=== PATIENT | female | born 1985 | race Caucasian/White ===

== ENCOUNTER 2019-08-14 10:58 | Emergency (ER) | payer BC ==
--- NOTE | 2019-08-14 12:50 | EDM.PDOC ---
Scribed by Angela Palma 08/14/19 1250 for Colin Lopez MD ED HPI GENERAL MEDICAL PROBLEM - General Chief Complaint: ENT Problem Stated Complaint: SWOLLEN THROAT/UPPER BODY ACHES Time Seen by Provider: 08/14/19 11:11 Source of Information: Reports: Patient, RN, RN Notes Reviewed History Limitations: Reports: No Limitations - History of Present Illness INITIAL COMMENTS - FREE TEXT/NARRATIVE: Patient is a 34-year-old with swollen glands under jaw and stiff back of neck this week. She started having increased heart rate, chest tight and shoulder muscles hurt. A shower helped to ease discomfort. Onset: Gradual Duration: Constant Location: Reports: Generalized Quality: Reports: Ache Severity: Moderate Improves with: Reports: None Worsens with: Reports: None Associated Symptoms: Reports: No Other Symptoms Chest Pain Score (Numeric/FACES): 3 - Related Data Allergies Allergy/AdvReac Type Severity Reaction Status Date / Time No Known Allergies Allergy Verified 08/14/19 11:03 Home Meds: Home Meds Bifidobacterium Infantis [Align] 10.5 mg PO DAILY 08/14/19 [History] Past Medical History - Past Health History Medical/Surgical History: Denies Medical/Surgical History HEENT History: Reports: None Cardiovascular History: Reports: None Respiratory History: Reports: None Gastrointestinal History: Reports: Celiac Disease Genitourinary History: Reports: None 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 Musculoskeletal History: Reports: None Neurological History: Reports: None Psychiatric History: Reports: None Endocrine/Metabolic History: Reports: None Hematologic History: Reports: None Immunologic History: Reports: None Oncologic (Cancer) History: Reports: None Dermatologic History: Reports: None - Infectious Disease History Infectious Disease History: Reports: None - Past Surgical History Head Surgeries/Procedures: Reports: None GI Surgical History: Reports: Cholecystectomy Social & Family History - Family History Family Medical History: Noncontributory - Tobacco Use Smoking Status *Q: Never Smoker Second Hand Smoke Exposure: No - Caffeine Use Caffeine Use: Reports: Coffee - Recreational Drug Use Recreational Drug Use: No ED ROS ENT - Review of Systems Review Of Systems: Comprehensive ROS is negative, except as noted in HPI. ED EXAM, ENT - Physical Exam Exam: See Below Exam Limited By: No Limitations General Appearance: Alert, WD/WN, No Apparent Distress Eye Exam: Bilateral Eye: Normal Inspection Ears: Normal External Exam, Normal Canal, Hearing Grossly Normal, Normal TMs Nose: Normal Inspection, Normal Mucousa, No Blood Mouth/Throat: Normal Gums, Normal Lips, Normal Oropharynx, Normal Teeth, Pharyngeal Erythema. No: Tonsillar Exudates Head: Atraumatic, Normocephalic Neck: Supple, Full Range of Motion, Lymphadenopathy (L), Lymphadenopathy (R) Respiratory/Chest: No Respiratory Distress, Lungs Clear, Normal Breath Sounds, No Accessory Muscle Use, Chest Non-Tender. No: Crackles, Rales, Rhonchi, Wheezing, Stridor Cardiovascular: Regular Rate, Rhythm, No Edema, No Murmur, Tachycardia Extremities: Normal Inspection Neurological: Alert, Oriented, Normal Cognition, Normal Gait, No Motor/Sensory Deficits Psychiatric: Normal Affect, Normal Mood Skin: Warm, Dry, Intact, Normal Color, No Rash Course - Vital Signs Last Recorded V/S: Last Vital Signs Temp 98.7 F 08/14/19 11:03 Pulse 100 08/14/19 11:03 Resp 16 08/14/19 11:03 BP 114/75 08/14/19 11:03 Pulse Ox 100 08/14/19 11:03 - Orders/Labs/Meds Orders: Active Orders 24 hr Category Date Time Status CULTURE STREP A CONFIRMATION [] Stat Lab 08/14/19 11:10 Results STREP SCRN A RAPID W CULT CONF [] Stat Lab 08/14/19 11:10 Results Labs: Rapid strep: Negative. Influenza A and B: Negative. Departure - Departure Time of Disposition: 12:47 Disposition: Home, Self-Care 01 Condition: Good Clinical Impression: Acute viral pharyngitis, Acute viral syndrome - Discharge Information *PRESCRIPTION DRUG MONITORING PROGRAM REVIEWED*: No *COPY OF PRESCRIPTION DRUG MONITORING REPORT IN PATIENT RUBINA: No Instructions: Pharyngitis, Viral Respiratory Infection Forms: ED Department Discharge Additional Instructions: Rx: Prednisone 20mg *Take with a meal. Use over the counter Tylenol (Acetaminophen) and throat lozenges or spray ( follow directions on package label for dosing and precautions). Frequent saltwater gargles until sore throat resolves. Drink plenty of water/fluids. Follow up in clinic if not improving in 4 to 5 days. Sepsis Event Note - Evaluation Sepsis Screening Result: No Definite Risk - Focused Exam Vital Signs: Vital Signs Temp Pulse Resp BP Pulse Ox 08/14/19 11:03 98.7 F 100 16 114/75 100 Date Exam was Performed: 08/14/19 Time Exam was Performed: 12:46 - My Orders Last 24 Hours: My Active Orders 08/14/19 11:10 CULTURE STREP A CONFIRMATION [RM] Stat STREP SCRN A RAPID W CULT CONF [RM] Stat - Assessment/Plan Last 24 Hours: My Active Orders 08/14/19 11:10 CULTURE STREP A CONFIRMATION [RM] Stat STREP SCRN A RAPID W CULT CONF [RM] Stat I have read and agree with the documentation that has been completed regarding this visit. By signing this record, I attest that the documentation was completed in my physical presence and is an accurate record of the encounter.
== END 2019-08-14 13:23 | disposition home or self-care (01) ==
LOC: DL.ED 10:58
DX: J02.8 Acute pharyngitis due to other specified organisms (principal); B34.9 Viral infection, unspecified
CPT/HCPCS: 87081; 87430; 87804; 99284

== ENCOUNTER 2021-03-06 02:55 | Inpatient (IN) | payer BC ==
[2021-03-06] MEDS ORDERED: Penicillin G Potassium 5 MILLUNITS in Sodium Chloride 0.9% 100 ML IV ONE (03:53)
[2021-03-06] MEDS ORDERED: Lactated Ringers 1,000 ML IV SCH ×2 (04:00→05:15)
[2021-03-06] MEDS ORDERED: Nalbuphine 10 MG/1 ML Vial IM PRN (04:10)
[2021-03-06] MEDS ORDERED: Carboprost Tromethamine 250 MCG/1 ML Amp IM PRN (05:11)
[2021-03-06] MEDS ORDERED: Methylergonovine 0.2 MG/1 ML Amp IM PRN (05:11)
[2021-03-06] MEDS ORDERED: Tranexamic Acid 1,000 MG in Sodium Chloride 0.9% 100 ML IV PRN (05:11)
[2021-03-06] MEDS ORDERED: Sodium Chloride 0.9% 10 ML Syringe FLUSH PRN (05:11)
[2021-03-06] MEDS ORDERED: Lidocaine 1% 30 ML SDV INJECT PRN (05:11)
[2021-03-06] MEDS ORDERED: Lactated Ringers 1,000 ML IV ONE (05:11)
[2021-03-06] MEDS ORDERED: Misoprostol 400 MCG (4 X 100 MCG TAB) RECTAL PRN (05:11)
[2021-03-06] MEDS ORDERED: Ondansetron 4 MG/2 ML SDV IVPUSH PRN (05:11)
[2021-03-06] MEDS ORDERED: Acetaminophen 325 MG Tab PO PRN (05:11)
--- NOTE | 2021-03-06 05:11 | PCM.LDHP ---
L&D History of Present Illness - General Date of Service: 03/06/21 Admit Problem/Dx: Admission Diagnosis/Problem Admission Diagnosis/Problem Source of Information: Patient History Limitations: Reports: No Limitations - History of Present Illness Introduction:: 36-year-old at 39w1d presents to L&d with increased contractions. Patient noted contractions started around midnight and were 10 minutes apart. Over the next 3 hours, they increased in intensity and frequency. When patient arrived around 0300, contractions were 1-3 minutes apart. Patient was seen in clinic yesterday and had her membranes stripped. has been complicated by AMA. 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 Musculoskeletal History: Reports: None Neurological History: Reports: None Psychiatric History: Reports: None Endocrine/Metabolic History: Reports: None Hematologic History: Reports: None Immunologic History: Reports: None Oncologic (Cancer) History: Reports: None Dermatologic History: Reports: None - Infectious Disease History Infectious Disease History: Reports: None - Past Surgical History Head Surgeries/Procedures: Reports: None GI Surgical History: Reports: Cholecystectomy Social & Family History - Family History Family Medical History: No Pertinent Family History - Caffeine Use Caffeine Use: Reports: Coffee H&P Review of Systems - Review of Systems: Review Of Systems: See Below General: Reports: No Symptoms HEENT: Reports: No Symptoms Pulmonary: Reports: No Symptoms Cardiovascular: Reports: No Symptoms Gastrointestinal: Reports: No Symptoms Genitourinary: Reports: No Symptoms Musculoskeletal: Reports: Back Pain Skin: Reports: No Symptoms Psychiatric: Reports: No Symptoms L&D Exam - Exam Exam: See Below - OB Specific Fundal Height In cm: 36 Contraction Intensity: Moderate to Strong Movement: Active Heart Tones: Present Heart Tones per Min: 130 Heart Rate (FHR) Variability: Moderate (6-25 bpm) Presentation: Vertex - Exam General: Alert, Oriented HEENT: Conjunctiva Clear Lungs: Clear to Auscultation, Normal Respiratory Effort Cardiovascular: Regular Rate, Regular Rhythm Extremities: Normal Inspection, No Pedal Edema Skin: Warm, Dry, Intact - Patient Data Lab Results Last 24 hrs: Laboratory Results - last 24 hr 03/06/21 03/06/21 Range/Units 03:05 04:00 WBC 19.4 H (5.0-10.0) 10^3/uL RBC 5.06 (4.2-5.4) 10^6/uL Hgb 15.5 (12.0-16.0) g/dL Hct 45.2 (37.0-47.0) % MCV 89.3 (80-100) fL MCH 30.6 (27.0-34.0) pg MCHC 34.3 (33.0-35.0) g/dL Plt Count 221 (150-450) 10^3/uL SARS-CoV-2 RNA (ANKUSH) Negative (NEGATIVE) Result Diagrams: 03/06/21 04:00 - Problem List (1) care in third trimester SNOMED Code(s): 717696386, 84431293, 47842046, 220805124, 062345149 ICD Code: Z34.93 - ENCNTR FOR SUPRVSN OF NORMAL PREG, UNSP, THIRD TRIMESTER Status: Acute Current Visit: Yes (2) Advanced maternal age during in third trimester SNOMED Code(s): 191446016, 646012970 ICD Code: IHS0169 - Status: Acute Current Visit: Yes (3) GBS (group B Streptococcus carrier), +RV culture, currently SNOMED Code(s): 4032908203411, 396941212, 4463279216734 ICD Code: O99.820 - STREPTOCOCCUS B CARRIER STATE COMPLICATING Status: Acute Current Visit: Yes (4) Rh negative status during in third trimester, antepartum SNOMED Code(s): 826203290 ICD Code: O26.893 - OTH RELATED CONDITIONS, THIRD TRIMESTER; Z67.91 - UNSPECIFIED BLOOD TYPE, RH NEGATIVE Status: Acute Current Visit: Yes (5) Rubella non-immune status, antepartum SNOMED Code(s): 659018514 ICD Code: O99.891 - OTH DISEASES AND CONDITIONS COMPLICATING ; Z28.3 - UNDERIMMUNIZATION STATUS Status: Acute Current Visit: Yes Problem List Initiated/Reviewed/Updated: Yes Orders Last 24hrs: Active Orders 24 hr Category Date Time Status Nitrous Oxide Delivery [RC] ASDIRECTED Care 03/06/21 04:16 Active OB Discontinue Nitrous Oxide [RC] ASDIRECTED Care 03/06/21 04:16 Active Lactated Ringers [Ringers, Lactated] 1,000 ml Med 03/06/21 04:00 Active IV ASDIRECTED Nalbuphine [Nubain] Med 03/06/21 04:10 Active 20 mg IM ONETIME PRN Penicillin G Potassium [Pfizerpen] 3 millunits Med 03/06/21 08:00 Active Sodium Chloride 0.9% [Normal Saline] 100 ml IV Q4H Medication Orders Lactated Ringer's (Ringers, Lactated) 1,000 mls @ 125 mls/hr IV ASDIRECTED KATELYNN Last Admin: 03/06/21 04:33 Dose: 125 mls/hr Documented by: KAMLESH Penicillin G Potassium 3 (millunits/ Sodium Chloride) 100 mls @ 200 mls/hr IV Q4H KATELYNN Nalbuphine HCl (Nalbuphine 10 Mg/1 Ml Vial) 20 mg IM ONETIME PRN PRN Reason: Pain Last Admin: 03/06/21 04:00 Dose: 20 mg Documented by: KAMLESH Assessment/Plan Comment:: 36-year-old at 39w1d presenting to L&D in active labor at term 1. Initiate routine intrapartum orders 2. Patient does not think she wants an intrathecal but is open to the rl 3. PCN for GBS positive status 4. Expectant management. Anticipate Sun Doss MD
[2021-03-06] MEDS ORDERED: Oxytocin/Normal Saline 30 UNIT/500 ML BAG IV SCH (05:15)
[2021-03-06] MEDS ORDERED: Penicillin G Potassium 3 MILLUNITS in Sodium Chloride 0.9% 100 ML IV SCH (08:00)
[2021-03-06] MEDS ORDERED: Ketorolac 30 MG/ML SDV IM ONE (08:10)
[2021-03-06] MEDS ORDERED: Ketorolac 30 MG/ML SDV IVPUSH ONE (08:10)
[2021-03-06] MEDS ORDERED: Benzocaine/Menthol 20%-0.5% Spray 78 GM Cannister TOP PRN ×2 (09:31→09:51)
[2021-03-06] MEDS ORDERED: Oxytocin 10 Units/1 ML SDV IM PRN (09:51)
[2021-03-06] MEDS ORDERED: Simethicone 80 MG Tab.Chew PO PRN (09:51)
[2021-03-06] MEDS ORDERED: Ibuprofen 800 MG Tab PO PRN (09:51)
[2021-03-06] MEDS: Docusate Sodium 100 MG Cap PO PRN (10:50)
[2021-03-06] MEDS ORDERED: Witch Hazel Medicated Pads 100/Jar TOP PRN (15:08)
--- NOTE | 2021-03-07 08:41 | PN ---
DATE: 03/07/2021 SUBJECTIVE: The patient is day #1, status post spontaneous vaginal delivery on 03/06/2021 at 39 weeks 0 days' gestation. The patient was GBS positive, inadequately treated, rubella equivocal, antibody negative. The patient has received RhoGAM but needs MMR vaccination today. The patient states she is doing well. She is up and ambulating, she is tolerating p.o. intake, and urinating appropriately. She is passing gas but has not had a bowel movement yet. She denies any lightheadedness, dizziness, headaches, blurred vision, chest pain, shortness of breath, epigastric pain, lower extremity pain or swelling. She does report her lochia is mild to moderate in nature. She is passing some small clots. She does have moderate cramping, controlled by OTC Tylenol and ibuprofen. The patient states she is doing well. She is working on breast feeding. She has no other questions or concerns at this time. OBJECTIVE: Vital Signs: Temp 98.3, HR: 84 bpm, BP: 137/80, respiratory rate 18 breaths per minute, and oxygen saturation 98%. Lungs: Clear to auscultation bilaterally. Heart: Regular rate and rhythm. No murmurs noted. Abdomen: Soft, distended, firm uterus. 1 cm below umbilicus. Extremities: No calf pain with palpation. Trace lower extremity edema bilaterally. Skin: Normal color and turgor. LABORATORY DATA: Hemoglobin 12.2, down from 15.3 prior to delivery. Hematocrit 36.5, down from 45.2 prior to delivery. Platelet count 176, down from 221. ASSESSMENT AND PLAN: 1. The patient is day 1 status post spontaneous vaginal delivery. No perineal lacerations. The patient is doing well. We will continue to monitor clinically and closely. 2. Patient has celiac disease, but is tolerating p.o. intake. 3. The patient is . 4. The patient is antibody negative, RhoGAM given. 5. The patient is rubella equivocal, will receive MMR vaccination today. 6. The patient was group B streptococcus positive, inadequately treated during delivery due to quick progression of labor. We will continue to monitor. 7. Tentative plan for discharge at 48 hours. 8. The patient and spouse are understanding of current treatment plan. No questions at this time. The patient was seen and evaluated today by myself and Dr. Sun Doss. Assessment and plan is under advisement of Dr. Doss. [facility] /[id number]
[2021-03-07] MEDS: Docusate Sodium 100 MG Cap PO PRN (08:57)
[2021-03-07] MEDS ORDERED: Measles, Mumps & Rubella Vaccine 0.5 ML SDV SUBCUT ONE (09:00)
[2021-03-07] MEDS: Prenatal Multivitamin with Calcium/Folic Acid/Iron Tab PO SCH (10:49)
[2021-03-08] MEDS: Docusate Sodium 100 MG Cap PO PRN (09:14)
[2021-03-08] MEDS: Prenatal Multivitamin with Calcium/Folic Acid/Iron Tab PO SCH (09:14)
--- NOTE | 2021-03-08 12:04 | PCM.DEL ---
& D Note - General Info Date of Service: 03/06/21 Mother's Due Date: 03/12/21 - Delivery Note Labor: Spontaneous Delivery Outcome: Livebirth Infant Delivery Method: Spontaneous Vaginal Delivery-Single Presentation: Vertex Nuchal Cord: Present, Reduced Anesthesia Type: Nitrous Oxide Amniotic Fluid Description: Meconium Stained Episiotomy Type: None Laceration: None Placenta: Intact, Spontaneous Cord: 3 Vessels Estimated Blood Loss: 350 Resuscitation Needed: Yes [place]: Bulb Syringe, Stimulated, Warmed, [place] Used, Warmer Used Provider: Sun Doss Score 1 min: 3 Score 5 min: 8 Delivery Comments (Free Text/Narrative):: 36-year-old at 39w1d presents to & in active labor around 0300. Upon arrival to [facility], patient was noted to be 3-4 cm dilated. She rapidly progressed to complete dilation around 0520. She received 1 dose of PCN for GBS prophylaxis. AROM was performed at 9+ cm for moderate meconium-stained fluid. Patient used Nubain x1 and nitrous oxide for pain control. Patient pushed for approximately 2 hours, 5 minutes and delivered a viable female infant with Apgars of 3 and 8 at 1 and 5 minutes respectively. Patient was noted to have the umbilical cord wrapped around the body and leg, as well as a nuchal cord. This was reduced and was laid on patient's chest. Cord was clamped x 2 and cut. Baby was then taken to the warmer for resuscitation. Cord blood was collected. Placenta delivered spontaneously 5 minutes later. Pitocin was initiate. Uterine tone was noted to be poor so uterine massage was performed and pitocin rate was increased to 999 ml/hr. A medium-sized blood clot was removed from the lower uterine segment. Uterine tone improved, and vaginal bleeding was noted to be appropriate. Perineum was inspected and noted to be intact. Patient tolerated the procedure, and there were no immediate complications. - General Info Date of Service: 03/06/21 - Patient Data Vitals - Most Recent: Last Vital Signs Temp 36.4 C 03/08/21 08:00 Pulse 82 03/08/21 08:00 Resp 18 03/08/21 08:00 BP 130/78 03/08/21 08:00 Pulse Ox 99 03/08/21 08:00 Weight - Most Recent: 96.615 kg Lab Results Last 24 Hours: Laboratory Results - last 24 hr 03/06/21 03/06/21 Range/Units 16:05 16:05 Maternal Bleed Neg Antibody Identification Anti-D Med Orders - Current: Current Medications Acetaminophen (Acetaminophen 325 Mg Tab) 650 mg PO Q4H PRN PRN Reason: Pain (Mild 1-3) and fever Benzocaine/Menthol (Benzocaine/Menthol 20%-0.5% [place] 78 Gm Cannister) 0 gm TOP Q4H PRN PRN Reason: Perineal comfort measures Last Admin: 03/06/21 10:47 Dose: 1 spray Documented by: Carboprost Tromethamine (Carboprost Tromethamine 250 Mcg/1 Ml Amp) 250 mcg IM ASDIRECTED PRN PRN Reason: HEMORRHAGE Docusate Sodium (Docusate Sodium 100 Mg Cap) 100 mg PO BID PRN PRN Reason: Constipation Last Admin: 03/08/21 09:14 Dose: 100 mg Documented by: Lactated Ringer's (Ringers, Lactated) 1,000 mls @ 125 mls/hr IV ASDIRECTED KATELYNN Last Admin: 03/06/21 04:33 Dose: 125 mls/hr Documented by: Tranexamic Acid 1,000 mg/ (Sodium Chloride) 110 mls @ 660 mls/hr IV ONETIME PRN PRN Reason: Bleeding Oxytocin/Sodium Chloride (Pitocin In Ns 30 Unit/500 Ml) 30 unit in 500 mls @ 2 mls/hr IV TITRATE KATELYNN; Protocol Last Titration: 03/06/21 09:05 Dose: 125 munits/min, 125 mls/hr Documented by: Ibuprofen (Ibuprofen 800 Mg Tab) 800 mg PO Q8H PRN PRN Reason: Cramping Lidocaine HCl (Lidocaine 1% 30 Ml Sdv) 30 ml INJECT ASDIRECTED PRN PRN Reason: Perineal Repair Methylergonovine Maleate (Methylergonovine 0.2 Mg/1 Ml Amp) 0.2 mg IM ASDIRECTED PRN PRN Reason: Hemorrhage Misoprostol (Misoprostol 400 Mcg (4 X 100 Mcg Tab)) 800 mcg RECTAL ASDIRECTED PRN PRN Reason: Hemorrhage Ondansetron HCl (Ondansetron 4 Mg/2 Ml Sdv) 4 mg IVPUSH Q4H PRN PRN Reason: Nausea/Vomiting Oxytocin (Oxytocin 10 Units/1 Ml Sdv) 10 unit IM ONETIME PRN PRN Reason: Bleeding Prenat Multivit/[place]/Iron/Folic Ac ( Multivitamin With Calcium/Folic Acid/Iron Tab) 1 each PO DAILY [facility] Last Admin: 03/08/21 09:14 Dose: Not Given Documented by: Simethicone (Simethicone 80 Mg Tab.Chew) 80 mg PO Q4H PRN PRN Reason: Gas Sodium Chloride (Sodium Chloride 0.9% 10 Ml Syringe) 10 ml FLUSH ASDIRECTED PRN PRN Reason: Keep Vein Open Witch Sveta (Witch Sveta Medicated Pads 100/Jar) 1 pad TOP ASDIRECTED PRN PRN Reason: Perineal Comfort Measure Last Admin: 03/06/21 18:28 Dose: 1 pad Documented by: Discontinued Medications Penicillin G Potassium 5 (millunits/ Sodium Chloride) 100 mls @ 200 mls/hr IV ONETIME ONE Stop: 03/06/21 04:22 Last Admin: 03/06/21 04:32 Dose: 200 mls/hr Documented by: Penicillin G Potassium 3 (millunits/ Sodium Chloride) 100 mls @ 200 mls/hr IV Q4H [facility] Last Admin: 03/06/21 15:27 Dose: Not Given Documented by: Lactated Ringer's (Ringers, Lactated) 1,000 mls @ 999 mls/hr IV BOLUS ONE Stop: 03/06/21 06:11 Last Admin: 03/06/21 15:07 Dose: Not Given Documented by: Ketorolac Tromethamine (Ketorolac 30 Mg/Ml Sdv) 30 mg IM ONETIME ONE Stop: 03/06/21 08:11 Last Admin: 03/06/21 08:34 Dose: 30 mg Documented by: Ketorolac Tromethamine (Ketorolac 30 Mg/Ml Sdv) 30 mg IVPUSH ONETIME ONE Stop: 03/06/21 08:11 Last Admin: 03/06/21 08:36 Dose: 30 mg Documented by: Measles/Mumps/Rubella Vaccine Live (Measles, Mumps & Rubella Vaccine 0.5 Ml Sdv) 0.5 ml SUBCUT .ONCE ONE Stop: 03/07/21 09:01 Last Admin: 03/07/21 08:56 Dose: 0.5 ml Documented by: Nalbuphine HCl (Nalbuphine 10 Mg/1 Ml Vial) 20 mg IM ONETIME PRN PRN Reason: Pain Last Admin: 03/06/21 04:00 Dose: 20 mg Documented by: - Problem List & Annotations (1) care in third trimester SNOMED Code(s): 534317395, 18496709, 95744604, 645002656, 707669695 Code(s): Z34.93 - ENCNTR FOR SUPRVSN OF NORMAL PREG, UNSP, THIRD TRIMESTER Status: Acute Current Visit: Yes (2) Advanced maternal age during in third trimester SNOMED Code(s): 004008499, 026555361 Code(s): NIA0835 - Status: Acute Current Visit: Yes (3) GBS (group B Streptococcus carrier), +RV culture, currently SNOMED Code(s): 0248974127703, 651316928, 0945589980796 Code(s): O99.820 - STREPTOCOCCUS B CARRIER STATE COMPLICATING Status: Acute Current Visit: Yes (4) Rh negative status during in third trimester, antepartum SNOMED Code(s): 809582405 Code(s): O26.893 - OTH RELATED CONDITIONS, THIRD TRIMESTER; Z67.91 - UNSPECIFIED BLOOD TYPE, RH NEGATIVE Status: Acute Current Visit: Yes (5) Rubella non-immune status, antepartum SNOMED Code(s): 260748298 Code(s): O99.891 - OTH DISEASES AND CONDITIONS COMPLICATING ; Z28.3 - UNDERIMMUNIZATION STATUS Status: Acute Current Visit: Yes (6) (normal spontaneous vaginal delivery) SNOMED Code(s): 73062160, 718223559 Code(s): O80 - ENCOUNTER FOR FULL-TERM UNCOMPLICATED DELIVERY Status: Acute Current Visit: Yes - Problem List Review Problem List Initiated/Reviewed/Updated: Yes - My Orders Last 24 Hours: My Active Orders 03/08/21 08:50 Ready for Discharge [RC] PER UNIT ROUTINE - Assessment Assessment:: 36-year-old, now , status post at 39w1d - Plan Plan:: 1. Initiate routine orders 2. Plans to breastfeed 3. Repeat CBC tomorrow AM 4. Anticipate discharge 03/08/2021 Sun Doss MD
--- NOTE | 2021-03-09 09:42 | DISCH ---
ADMITTING DIAGNOSES: 1. Intrauterine at 39 weeks 0 days gestation, confirmed by ultrasound. 2. Presentation in normal labor with increasing intensity and frequency of contractions, admitted to Labor and Delivery on 03/06/2021. 3. GBS positive patient. 4. History of miscarriage. 5. ABO blood type B negative, antibody negative, rubella equivocal. DISCHARGE DIAGNOSES: 1. Intrauterine at 39 weeks 0 days gestation, confirmed by ultrasound. 2. Presentation in normal labor with increasing intensity and frequency of contractions, admitted to Labor and Delivery on 03/06/2021. 3. GBS positive patient. 4. History of miscarriage. 5. ABO blood type B negative, antibody negative, rubella equivocal. 6. on 03/06/2021, no lacerations noted. 7. RhoGAM given, MMR given. 8. GBS positive status, inadequately treated. The patient did receive 1 dose of penicillin at 0400 during labor. 9. Meconium-stained fluid. 10.Nuchal cord x1, body cord x1, leg cord x1 bluntly reduced at delivery. HISTORY OF PRESENT ILLNESS: Please see H and P and delivery note for further details. SUMMARY OF HOSPITAL COURSE: The patient was admitted on 03/06/2021 for management of routine labor. The patient underwent spontaneous vaginal delivery of a term female weighing 3260 g at with score of 3 of 8 at one and five minutes respectively. Immediately after delivery, was brought to warmer and received 4 minutes of PPV with spontaneous resolution of respirations. The patient tolerated delivery well. day 1: Please see progress note from 03/07/2021 for further details. day #2, day of discharge: The patient is tolerating general diet. Patient is up and ambulating without difficulty. She is urinating appropriately. She does report mild lochia. She denies concerning signs and symptoms including headache, dizziness, lightheadedness, vision changes, nausea, vomiting, lower extremity pain or swelling. The patient is infant. The patient is working with and nursing staff regarding this. The patient feels that she is otherwise doing well and is expectantly waiting discharge today. PHYSICAL EXAMINATION: Vital Signs: Temp 97.6, HR 82 bpm, BP 130/78, RR 18 breaths per minute, oxygen saturation 99% on room air. HEENT: Within normal limits. Lungs: Clear to auscultation bilaterally. No increased work of breathing. Heart: Regular rate and rhythm. No murmurs noted. Abdomen: Soft, mildly tender. Firm uterus palpated 1 cm below umbilicus. Extremities: Trace pedal edema present. No calf pain or tenderness noted. LABORATORY DATA: hemoglobin 12.2, down from 15.5 prior to delivery. Asymptomatic. DISCHARGE DISPOSITION: Good. DISCHARGE INSTRUCTIONS: Please see discharge handout for further instructions. DISCHARGE MEDICATIONS: Colace, ibuprofen, vitamin, acetaminophen. FOLLOWUP: Shannon is to follow up on Friday with Dr. Tila White. The patient is to follow up at well-child check along with at 2 weeks . Discussed with patient and significant other red flag symptoms/concerning signs or symptoms that prompt urgent reevaluation. I notified family that they may call OB triage if they have any questions after returning home especially over the weekend. Questions answered and the patient is in agreement with above plan. The patient was seen and evaluated today by myself and Dr. Sun Doss. Assessment and plan is under advisement of Dr. Doss. [facility] /[id number]
== END 2021-03-08 13:45 | disposition home or self-care (01) | DRG 560 ==
LOC: DL.OBCHECK 02:55 → DL.OB 03:23
PROVIDERS: ADMIT Family Medicine; ATTEND Family Medicine
PROC: 10E0XZZ Delivery of Products of Conception, External Approach (ICD-10-PCS; principal; 2021-03-06)
PROC: 10907ZC Drainage of Amniotic Fluid, Therapeutic from Products of Conception, Via Natural or Artificial Opening (ICD-10-PCS; 2021-03-06)
PROC: 3E0334Z Introduction of Serum, Toxoid and Vaccine into Peripheral Vein, Percutaneous Approach (ICD-10-PCS; 2021-03-06)
DX: O77.0 Labor and delivery complicated by meconium in amniotic fluid (principal); O99.824 Streptococcus B carrier state complicating childbirth; Z37.0 Single live birth; O26.893 Other specified pregnancy related conditions, third trimester; Z67.21 Type B blood, Rh negative; O69.81X0 Labor and delivery complicated by cord around neck, without compression, not applicable or unspecified; K90.0 Celiac disease; O99.62 Diseases of the digestive system complicating childbirth; Z20.822 Contact with and (suspected) exposure to COVID-19; Z3A.39 39 weeks gestation of pregnancy
CPT/HCPCS: 36415; 36430; 59409; 85027; 85461; 86850; 86870; 86900; 86901; 90471; 90707; A9270-GY; J1885; J2300; J2540; J2590; J2790; J7120; U0002

== ENCOUNTER 2022-11-21 05:06 | Inpatient (IN) | payer BC ==
[2022-11-21] MEDS ORDERED: Ondansetron 4 MG/2 ML SDV IVPUSH PRN (05:58)
[2022-11-21] MEDS ORDERED: Acetaminophen 325 MG Tab PO PRN ×2 (05:58→07:00)
[2022-11-21] MEDS ORDERED: Lidocaine 1% 30 ML SDV INJECT PRN (05:58)
[2022-11-21] MEDS ORDERED: Carboprost Tromethamine 250 MCG/1 ML Amp IM PRN (05:58)
[2022-11-21] MEDS ORDERED: Methylergonovine 0.2 MG/1 ML Amp IM PRN (05:58)
[2022-11-21] MEDS ORDERED: Misoprostol 400 MCG (4 X 100 MCG TAB) RECTAL PRN (05:58)
[2022-11-21] MEDS ORDERED: Lactated Ringers 1,000 ML IV ONE (05:58)
[2022-11-21] MEDS ORDERED: Tranexamic Acid 1,000 MG in Sodium Chloride 0.9% 100 ML IV PRN (05:58)
[2022-11-21] MEDS ORDERED: Sodium Chloride 0.9% 10 ML Syringe FLUSH PRN (05:58)
[2022-11-21] MEDS ORDERED: Oxytocin/Normal Saline 30 UNIT/500 ML BAG IV SCH (06:00)
[2022-11-21] MEDS ORDERED: Lactated Ringers 1,000 ML IV SCH (06:00)
[2022-11-21] MEDS ORDERED: Simethicone 80 MG Tab.Chew PO PRN (07:00)
[2022-11-21] MEDS ORDERED: Oxytocin 10 Units/1 ML SDV IM PRN (07:00)
[2022-11-21] MEDS ORDERED: Docusate Sodium 100 MG Cap PO PRN ×2 (07:00→12:24)
[2022-11-21] MEDS ORDERED: Benzocaine/Menthol 20%-0.5% Spray 78 GM Cannister TOP PRN (07:00)
[2022-11-21] MEDS ORDERED: Ibuprofen 800 MG Tab PO PRN (07:00)
[2022-11-21] MEDS ORDERED: Prenatal Multivitamin with Calcium/Folic Acid/Iron Tab PO SCH ×2 (09:00→12:30)
[2022-11-21] MEDS ORDERED: Witch Hazel Medicated Pads 100/Jar TOP PRN (09:04)
[2022-11-21] MEDS ORDERED: Non-Formulary Medication 1 Each (Naproxen Sodium [Naproxen Sodium] 220 MG Capsule) PO PRN (12:24)
[2022-11-21] MEDS ORDERED: FLUoxetine 10 MG Cap PO SCH (12:30)
[2022-11-21] MEDS ORDERED: Docusate Sodium 100 MG Cap**OWN MED PO PRN (20:18)
[2022-11-21] MEDS: Saccharomyces Boulardii (Probiotic) 250 MG Cap PO SCH (20:54)
[2022-11-21] MEDS ORDERED: FOLIC ACID PO SCH (21:00)
[2022-11-21] MEDS ORDERED: IRON PO SCH (21:00)
[2022-11-21] MEDS ORDERED: PRENATAL MULTIVITAMIN WITH CALCIUM PO SCH (21:00)
[2022-11-22] MEDS ORDERED: FLUOXETINE 20 MG PO SCH ×2 (09:00)
[2022-11-22] MEDS: Saccharomyces Boulardii (Probiotic) 250 MG Cap PO SCH (09:14)
== END 2022-11-22 14:34 | disposition home or self-care (01) | DRG 560 ==
LOC: DL.OBCHECK 05:06 → DL.OB 05:58 → UNDOADMIN 05:58 → DL.OB 14:45
PROVIDERS: ADMIT Family Medicine; ATTEND Family Medicine
PROC: 0HQ9XZZ Repair Perineum Skin, External Approach (ICD-10-PCS; principal; 2022-11-21)
PROC: 10E0XZZ Delivery of Products of Conception, External Approach (ICD-10-PCS; principal; 2022-11-21)
DX: O42.02 Full-term premature rupture of membranes, onset of labor within 24 hours of rupture (principal); O26.893 Other specified pregnancy related conditions, third trimester; Z67.21 Type B blood, Rh negative; O70.0 First degree perineal laceration during delivery; O99.814 Abnormal glucose complicating childbirth; Z3A.39 39 weeks gestation of pregnancy; Z37.0 Single live birth; Z86.16 Personal history of COVID-19; Z88.8 Allergy status to other drugs, medicaments and biological substances; Z90.49 Acquired absence of other specified parts of digestive tract
CPT/HCPCS: 36415; 59409; 85027; 85461; 86850; 86900; 86901; A9270-GY; J2590; J2790; J3490; J7120

== ENCOUNTER 2025-01-25 18:40 | Inpatient (IN) | payer BC ==
[2025-01-25 19:08] LABS: HEMATOCRIT 42.8 % (37.0-47.0); HEMOGLOBIN 14.5 g/dL (12.0-16.0); MEAN CORPUSCULAR HGB CONC 33.9 g/dL (33.0-35.0); MEAN CORPUSCULAR VOLUME 88.6 fL (80-100); RED BLOOD CELL COUNT 4.83 10^6/uL (4.2-5.4)
[2025-01-25] MEDS: Oxytocin/Normal Saline 30 UNIT/500 ML BAG IV SCH (20:40)
[2025-01-25] MEDS: Lactated Ringers 1,000 ML IV SCH (20:40)
[2025-01-25] MEDS ORDERED: Tranexamic Acid 1,000 MG in Sodium Chloride 0.9% 100 ML IV PRN (20:48)
[2025-01-25] MEDS ORDERED: Docusate Sodium 100 MG Cap PO PRN (20:48)
[2025-01-25] MEDS ORDERED: Acetaminophen 325 MG Tab PO PRN (20:48)
[2025-01-25] MEDS ORDERED: Simethicone 80 MG Tab.Chew PO PRN (20:48)
[2025-01-25] MEDS ORDERED: Oxytocin 10 Units/1 ML SDV IM PRN (20:48)
[2025-01-25] MEDS ORDERED: Misoprostol 100 MCG Tab RECTAL PRN (20:48)
[2025-01-25] MEDS ORDERED: Carboprost Tromethamine 250 MCG/1 ML Amp IM PRN (20:48)
[2025-01-25] MEDS ORDERED: Sodium Chloride 0.9% 10 ML Syringe FLUSH PRN (20:48)
[2025-01-25] MEDS: Benzocaine/Menthol 20%-0.5% Spray 78 GM Cannister TOP PRN (21:36)
[2025-01-25] MEDS: Witch Hazel Medicated Pads 100/Jar TOP PRN (21:37)
[2025-01-25] MEDS: Methylergonovine 0.2 MG Tab PO PRN (22:29)
[2025-01-26] MEDS: Ibuprofen 800 MG Tab PO SCH (00:09)
[2025-01-26] MEDS: Prenatal Multivitamin with Calcium/Folic Acid/Iron Tab PO SCH (10:05)
== END 2025-01-27 10:49 | disposition home or self-care (01) | DRG 560 ==
LOC: DL.OBCHECK 18:40 → DL.OB 19:26 → OBSVTOIN 20:35
PROVIDERS: ADMIT Family Medicine; ATTEND Family Medicine
PROC: 10E0XZZ Delivery of Products of Conception, External Approach (ICD-10-PCS; principal; 2025-01-25)
DX: O99.344 Other mental disorders complicating childbirth (principal); Z3A.37 37 weeks gestation of pregnancy; Z37.0 Single live birth; Z88.8 Allergy status to other drugs, medicaments and biological substances; Z79.899 Other long term (current) drug therapy; Z86.16 Personal history of COVID-19; Z90.49 Acquired absence of other specified parts of digestive tract
CPT/HCPCS: 36415; 59025; 85027; 85461; 86850; 86900; 86901; A9270-GY; J2590; J2791; J7120